=== PATIENT | male | born 1965 | race Caucasian/White ===

== ENCOUNTER 2024-10-05 11:06 | Emergency (ER) | payer MEDICAID, OTHER ==
[~2024-10-05] VITALS: Ht 167.6 cm; Wt 87.7 kg
--- NOTE | 2024-10-05 11:22 | ED.PDOC ---
Musculoskeletal HPI Comments PMHx: Denies. PSHx: Lt knee, hip, and femur surgery Social hx: Uses marijuana. Denies alcohol and tobacco use. Meds: None. Allergies: NKDA. Vitals T: 98.2F RR: 18 HR: 72 BP: 182/98 O2: 97% on RA HPI: Poor Historian. 58-year-old male presents to emergency department for evaluation of bilateral leg swelling with erythema and discomfort in bilateral legs. Patient points to below the knee all the way down to the foot. Patient states this started approximately a week and a half ago. Denies any associated chest pain or shortness of breath or fever. REVIEW OF SYSTEMS: CONSTITUTIONAL: Denies acute: fever, diaphoresis, chills, generalized weakness. HEAD: Denies acute: headache, photophobia Eyes: Denies acute: Double vision, vision loss, eye pain, eye discharge. EARS: Denies acute: tinnitus, hearing loss, ear discharge, ear pain, THROAT: Denies acute: sore throat, swelling, difficulty swallowing , pain with swallowing, change in voice. NECK: Denies acute: neck pain, neck swelling, stiff neck. HEART: Denies acute : chest pain, palpitations, LUNGS: Denies acute: SOB, wheezing, cough, hemoptysis ABDOMEN: Denies acute: abdominal pain, Nausea, Vomiting, diarrhea, melena , hematemesis, hematochezia SKIN: Denies acute: rash, lesions, itchiness. EXTREMITIES: Denies acute: calf pain, numbness, tingling, weakness, Denies acute: Low back pain. Neuro: Denies acute: focal neurological deficit, motor or sensory focal neurological deficit, tremors, seizure like activity, confusion, dizziness, change in mental status, loss of bowel or bladder function, cauda equina like symptoms. : Denies acute: dysuria, hematuria, flank pain, increase in urinary frequency. PSYCH: Denies acute: hallucination, suicidal ideation, homicidal ideation. PHYSICAL EXAM: General: no acute distress, awake and alert. Head: normocephalic, atraumatic. Neck: supple, trachea is midline, no swelling. Throat: Normal phonation. Eyes:, no erythema, no purulent discharge, no proptosis, no icterus. Heart: regular rate, regular rhythm, no significant murmur appreciated. Lungs: no apparent respiratory distress, Able to speak in full sentences. No wheezing, no rhonchi, no crackles. No stridors Clear to auscultation bilaterally. Abdomen: non tender to palpation, non distended, soft, no guarding, no rebound, + bowel sounds. Neuro: Awake, Alert, oriented to name, self, situation, follows commands GCS=15. Speech is normal. Skin: no petechia, no purpura, no cyanosis, non-pale, not jaundice. Lower extremities: --3/4 bilateral - Pitting edema no deformity, no focal swelling, no calf TTP. Makes eye contact. moves all four extremities. Patient is neurovascularly intact in bilateral lower extremities. Pedal pulses are palpable bilaterally. Motor and sensory are present bilaterally. Face: no apparent facial droop. Ambulating in the ED independently. Chief Complaint: Lower Extremity Time Seen by MD: 11:10 Primary Care Provider: NONE Reviewed Notes: Nurses Notes, Medications, Allergies Allergies: Coded Allergies: NO KNOWN ALLERGIES (Unverified , 10/05/24) Information Source: Patient Mode of Arrival: Ambulatory Location: Bilateral Extremity Location: Leg Timing: Weeks Severity: Moderate Able to Move Extremity: Yes Bear Weight: Fully Pain: Mild Mechanism: None Circumstances: Other Onset of Symptoms: Spontaneous Symptoms: Swelling, Pain, Erythema, Warmth DVT Risk Factors: NONE Last Tetanus: UTD History of: Hip Fracture, Hip Operation Associated signs and symptoms: Leg pain Past Medical History PAST MEDICAL HISTORY: Denies Surgical History (Other): Lt knee, hip, and femur surgery Family History Family History: Reviewed,noncontributory to illness Social History Alcohol: Occasionally Drugs: Marijuana Lives In: Home Was a procedure done? Was a procedure done?: No Differential Diagnosis EXT Differential Diagnosis: Cellulitis, Deep Vein Thrombosis, Other (Leg swellingDdx include but not limited to DVT, ischemic limb, pitting edema, volume overload, CHF, cellulitis, hematoma, compartment syndrome, dependent edema, venous stasis.) X-Ray, Labs, Meds, VS Vital Signs Date Time Temp Pulse Resp B/P (MAP) Pulse Ox O2 Delivery O2 Flow Rate FiO2 10/05/24 11:28 98.2 72 18 182/98 (126) 97 Lab Test 10/05/24 14:04 10/05/24 11:34 Range/Units B-Type Natriuretic Peptide 29.32 0-100 pg/mL White Blood Count 6.7 4.4-10.8 10^3/uL Red Blood Count 4.43 L 4.5-5.90 10^6/uL Hemoglobin 15.7 13.5-17.5 g/dL Hematocrit 44.7 41.0-53.0 % Mean Corpuscular Volume 100.9 H 80.0-100.0 fL Mean Corpuscular Hemoglobin 35.4 H 28.0-32.0 pg Mean Corpuscular Hemoglobin Concent 35.1 32.0-36.0 g/dL Red Cell Distribution Width 14.3 11.8-14.3 % Platelet Count 190 140-450 10^3/uL Mean Platelet Volume 8.7 6.9-10.8 fL Neutrophils (%) (Auto) 52.0 37.0-80.0 % Lymphocytes (%) (Auto) 29.2 10.0-50.0 % Monocytes (%) (Auto) 7.8 0.0-12.0 % Eosinophils (%) (Auto) 7.5 H 0.0-7.0 % Basophils (%) (Auto) 3.5 H 0.0-2.0 % Neutrophils # (Auto) 3.5 1.6-8.6 10 ^3/uL Lymphocytes # (Auto) 2.0 0.4-5.4 10 ^3/uL Monocytes # (Auto) 0.5 0-1.3 10 ^3/uL Eosinophils # (Auto) 0.5 0-0.8 10 ^3/uL Basophils # (Auto) 0.2 0-0.2 10 ^3/uL Nucleated Red Blood Cells 0.1 % Erythrocyte Sedimentation Rate 8 0-20 mm/hr Sodium Level 141 136-145 mmol/L Potassium Level 3.7 3.5-5.1 mmol/L Chloride Level 110 H 98-107 mmol/L Carbon Dioxide Level 27 20-31 mmol/L Anion Gap 4 L 5-15 Blood Urea Nitrogen 6 L 9-23 mg/dL Creatinine 0.80 0.700-1.30 mg/dL Glomerular Filtration Rate Calc 104 >90 mL/min BUN/Creatinine Ratio 7.5 L 10.0-20.0 Serum Glucose 104 74-106 mg/dL Lactic Acid Level 1.2 0.4-2.0 mmol/L Calcium Level 9.1 8.7-10.4 mg/dL Total Bilirubin 2.4 H 0.2-1.0 mg/dL Aspartate Amino Transferase (AST) 127 H 13-40 U/L Alanine Aminotransferase (ALT) 107 H 7-40 U/L Alkaline Phosphatase 152 H 46-116 U/L C-Reactive Protein High Sensitivity 0.29 <1.0 mg/dL Total Protein 6.5 5.7-8.2 g/dL Albumin 3.1 L 3.2-4.8 g/dL [place] [id number] Ph: [phone] DIAGNOSTIC IMAGING Diagnostic Imaging Report : [id number] Signed PATIENT: SWETHA TEJADA ACCT: [id number] UNIT: [id number] : 1965 LOC: ER ROOM / BED: / AGE / SEX: 58 / M ADM STATUS: REG ER SERVICE 25 ORDERING PHYSICIAN: CLEOPATRA WEINER DO PROCEDURE(s): BLDVT - BiLat Lower DVT REASON: swelling ORDER NUMBER(s): [id number], ACCESSION NUMBER(s): [id number] Bilateral lower extremity venous Doppler INDICATION: swelling TECHNIQUE: Duplex venous sonography was performed with real-time and flow sensitive images submitted for evaluation. FINDINGS: Normal phasic venous flow. Veins are fully compressible. No filling defects. IMPRESSION: 1. No evidence of deep vein thrombosis. Probable popliteal or Cooper's cyst on the left measuring 3.9 cm ATED BY: RAVEN CHAU MD DICTATED DATE/TIME: 10/05/241211 SIGNED BY: RAVEN CHAU MD SIGNED DATE/TIME: 10/05/241211 CC: Time of 1ST Reevaluation: 11:44 Reevaluation 1ST: Unchanged Time of 2ND Reevaluation: 15:13 (Patient denies any nausea or vomiting or abdominal pain.) Patient Education/Counseling: Diagnosis, Treatment Family Education/Counseling: No Family Present Comments Patient presented with the above HPI.---leg swelling---workup was initiated. patient was found with the above mentioned diagnosis. Patient was given: Lasix. Patient ED course and VS have been stabilized. Patient has been reassessed in the ED and remained in a stable condition. CRP and ESR were essentially normal. No leukocytosis. Normal BNP. Normal lactic acid Pertinent incidental findings were discussed with the patient and/or family. Patient/family voices understanding and is agreeable with plan. Patient has been observed in the ED adequate length of time to insure improvement/stability. patient was discharged home in a stable condition. All the reports of any imaging studies that were ordered by myself were reviewed by myself. Departure 1 Departure Time of Disposition: 13:55 Impression: Primary Impression: Pitting edema Additional Impressions: Leg swelling Elevated LFTs Disposition: HOME / SELF CARE / HOMELESS Condition: Stable Additional Instructions: Additional discharge instructions: You MUST follow-up with your primary care/family doctor in 1 to 2 days. If you are unable to see your primary care/family doctor, please return to our emergency room for re-assessment and re-evaluation in 1 to 2 days. Return to the emergency room here in our facility or to the nearest ER [facility] if your symptoms change or worsen. CONSULTATIONS: you MUST Follow-up for consultation as soon as possible with: -gastroenterology and cardiology in 1-2 days. Please call for appointment. You MUST call the consultants office yourself to make an appointment. You may need to arrange that through your insurance and/or your primary/family doctor. If you are unable to see the software security consultant in 1 to 2 days, you must return to our emergency room (or any other ER of your choice) for re-assessment and re- evaluation. Adequate fluid hydration. Wear compression stockings bilaterally. Below is a copy of your radiological report for follow up: [place] [address] Ph: [phone] DIAGNOSTIC IMAGING Diagnostic Imaging Report : [id number] Signed PATIENT: SWETHA TEJADA ACCT: [id number] UNIT: [id number] : 1965 LOC: ER ROOM / BED: / AGE / SEX: 58 / M ADM STATUS: REG ER SERVICE 1126 ORDERING PHYSICIAN: CLEOPATRA WEINER DO PROCEDURE(s): BLDVT - BiLat Lower DVT REASON: swelling ORDER NUMBER(s): [id number], ACCESSION NUMBER(s): [id number] Bilateral lower extremity venous Doppler INDICATION: swelling TECHNIQUE: Duplex venous sonography was performed with real-time and flow sensitive images submitted for evaluation. FINDINGS: Normal phasic venous flow. Veins are fully compressible. No filling defects. IMPRESSION: 1. No evidence of deep vein thrombosis. Probable popliteal or Cooper's cyst on the left measuring 3.9 cm ATED BY: RAVEN CHAU MD DICTATED DATE/TIME: 10/05/241211 SIGNED BY: RAVEN CHAU MD SIGNED DATE/TIME: 10/05/241211 CC: Discharged With: Self Critical Care Note Critical Care Time?: No Heart Score Heart Score: Heart Score Response (Comments) Value History N/A 0 EKG N/A 0 Age N/A 0 Risk Factors N/A 0 Troponin N/A 0 Total 0 I personally scribed for CLEOPATRA WEINER DO ([email or web address]) on 10/05/24 at 11:22. Electronically submitted by Staci Pepper ([email or web address]). I personally scribed for CLEOPATRA WEINER DO ([email or web address]) on 10/05/24 at 11:27. Electronically submitted by Staci Pepper ([email or web address]). I personally scribed for CLEOPATRA WEINER DO ([email or web address]) on 10/05/24 at 11:34. Electronically submitted by Staci Pepper ([email or web address]). I personally scribed for CLEOPATRA WEINER DO ([email or web address]) on 10/05/24 at 12:20. Electronically submitted by Staci Pepper ([email or web address]). CLEOPATRA WEINER DO Oct 05, 2024 11:22
[2024-10-05 11:28] VITALS: BP 182/98; PULSE 72; RESP 18; O2SAT 97
[2024-10-05 12:07] LABS: Basophils # (auto) 0.2 10 ^3/uL (0-0.2); Eosinophils # (auto) 0.5 10 ^3/uL (0-0.8); Monocytes # (auto) 0.5 10 ^3/uL (0-1.3); Neutrophils # (auto) 3.5 10 ^3/uL (1.6-8.6); Nucleated Red Blood Cells % 0.1 %; Red Cell Distribution Width 14.3 % (11.8-14.3)
[2024-10-05 12:08] LABS: Basophils % (auto) 3.5 % (0.0-2.0); Eosinophils % (auto) 7.5 % (0.0-7.0); Hematocrit 44.7 % (41.0-53.0); Hemoglobin 15.7 g/dL (13.5-17.5); Lymphocytes % (auto) 29.2 % (10.0-50.0); Mean Corpuscular Hemoglobin 35.4 pg (28.0-32.0); Mean Corpuscular Hgb Conc. 35.1 g/dL (32.0-36.0); Mean Corpuscular Volume 100.9 fL (80.0-100.0); Monocytes % (auto) 7.8 % (0.0-12.0); Platelet Count (auto) 190 10^3/uL (140-450); Red Blood Cells 4.43 10^6/uL (4.5-5.90); White Blood Cell 6.7 10^3/uL (4.4-10.8)
--- NOTE | 2024-10-05 12:15 | DVH ---
Bilateral lower extremity venous Doppler INDICATION: swelling TECHNIQUE: Duplex venous sonography was performed with real-time and flow sensitive images submitted for evaluation. FINDINGS: Normal phasic venous flow. Veins are fully compressible. No filling defects. IMPRESSION: 1. No evidence of deep vein thrombosis. Probable popliteal or Cooper's cyst on the left measuring 3.9 cm
[2024-10-05 12:20] LABS: Alanine Aminotransferase 107 U/L (7-40); Albumin 3.1 g/dL (3.2-4.8); Alkaline Phosphatase 152 U/L (46-116); Anion Gap 4 (5-15); Aspartate Aminotransferase 127 U/L (13-40); BUN/Creatinine Ratio 7.5 (10.0-20.0); Bilirubin, Total 2.4 mg/dL (0.2-1.0); Blood Urea Nitrogen 6 mg/dL (9-23); CRP High Sensitivity 0.29 mg/dL (<1.0); Calcium 9.1 mg/dL (8.7-10.4); Carbon Dioxide 27 mmol/L (20-31); Chloride 110 mmol/L (98-107); Glucose 104 mg/dL (74-106); Potassium 3.7 mmol/L (3.5-5.1); Sodium 141 mmol/L (136-145); Total Protein 6.5 g/dL (5.7-8.2)
[2024-10-05 12:47] LABS: Erythrocyte Sedimentation Rate 8 mm/hr (0-20)
[2024-10-05] MEDS ORDERED: FUROSEMIDE 40 MG/4 ML VIAL IV ONE (13:00)
== END 2024-10-05 15:46 | disposition home or self-care (01) ==
LOC: ER 11:06
DX: R60.0 Localized edema (principal); R79.89 Other specified abnormal findings of blood chemistry; F12.90 Cannabis use, unspecified, uncomplicated; Z98.890 Other specified postprocedural states
CPT/HCPCS: 36415; 80053; 83605; 83880; 85025; 85652; 86141; 93970

== ENCOUNTER 2024-12-17 13:57 | Emergency (ER) | payer MEDICAID ==
[~2024-12-17] VITALS: Ht 167.6 cm; Wt 87.5 kg
--- NOTE | 2024-12-17 14:15 | ED.PDOC ---
HPI Comments 59y M who presents to the ED for chief complaint of chest pain. Pt states he has been having chest pain since last night PM. Pt states the pain is located in the center of his chest, constant, rating the pain 7/10, radiating to the back, with noted exacerbation of pain with exertion and no relieving factors. Pt has associated shortness of breath, cough, fever and chills with lower abdominal pain. Pt otherwise any other associated symptoms. Pt denies any past medical history. Chief Complaint: chest pain Time Seen by MD: 14:10 Reviewed Notes: Nurses Notes, Medications, Allergies (No allergies to medications) Allergies: Coded Allergies: NO KNOWN ALLERGIES (Unverified , 10/05/24) Information Source: Patient Mode of Arrival: Ambulatory Brought in by: self Severity: Moderate Timing: Hours Duration: Since onset Prehospital treatment: None Location: Chest (R), Chest (L) Radiation: Back Quality: Pressure Onset: At Rest, With Light Exertion Cardiac Risk Factors: Smoker PE Risk Factors: None History of: None Modifying Factors: Exertion, Movement Associated Signs and Symptoms: Palpitations, Abdominal Pain, Other (fever, cough and chills) Past Medical History PAST MEDICAL HISTORY: Denies Surgical History (Other): hip surgery, L knee replacement, Family History Family History: Family hx of DM Social History Smoker: Cigarettes Alcohol: Occasionally Drugs: Denies Drug Use Lives In: Home Constitutional: reports: chills, fatigue, fever; denies: diaphoresis, malaise, sweats, weakness, others EENTM: denies: blurred vision, double vision, ear bleeding, ear discharge, ear drainage, ear pain, ear ringing, eye pain, eye redness, hearing loss, mouth pain, mouth swelling, nasal discharge, nose bleeding, nose congestion, nose pain, photophobia, tearing, throat pain, throat swelling, voice changes, others Respiratory: reports: cough, shortness of breath, SOB with excertion; denies: hemoptysis, orthopnea, SOB at rest, stridor, wheezing, others Cardiovascular: reports: chest pain; denies: dizzy spells, diaphoresis, Dyspnea on exertion, edema, irregular heart beat, left arm pain, lightheadedness, palpitations, PND, syncope, others Gastrointestinal: denies: abdomen distended, abdominal pain, blood streaked bowels, constipated, diarrhea, dysphagia, difficulty swallowing, hematemesis, melena, nausea, poor appetite, poor fluid intake, rectal bleeding, rectal pain, vomiting, others Genitourinary: denies: burning, dysuria, flank pain, frequency, hematuria, incontinence, penile discharge, penile sore, pain, testicle pain, testicle swelling, urgency, others Neurological: denies: dizziness, fainting, headache, left sided numbness, left sided weakness, numbness, paresthesia, pre-existing deficit, right sided numbness, right sided weakness, seizure, speech problems, tingling, tremors, weakness, others Musculoskeletal: denies: back pain, gout, joint pain, joint swelling, muscle pain, muscle stiffness, neck pain, others Integumetry: denies: bruises, change in color, change in hair/nails, dryness, laceration, lesions, lumps, rash, wounds, others Allergic/Immunocompromised: denies: Difficulty Healing, Frequent Infections, Hives, Itching, others Hematologic/Lymphatic: denies: anemia, blood clots, easy bleeding, easy bruising, swollen glands, others Endocrine: denies: excessive hunger, excessive sweating, excessive thirst, excessive urination, flushing, intolerance to cold, intolerance to heat, unexplained weight gain, unexplained weight loss, others Psychiatric: denies: anxiety, bipolar disorder, depression, hopeless, panic disorder, schizophrenia, sleepless, suicidal, others All Other Systems: Reviewed and Negative Physical Exam General Appearance: Moderate Distress HEENT: Normal ENT Inspection, Pharynx Normal, TMs Normal Neck: Full Range of Motion, Non-Tender, Normal, Normal Inspection Respiratory: Chest Non-Tender, Lungs Clear, No Accessory Muscle Use, No Respi ratory Distress, Normal Breath Sounds Cardiovascular: No Edema, No JVD, No Murmur, No Gallop, Normal Peripheral Pulses, Regular Rate/Rhythm Breast Exam: Deferred Gastrointestinal: Epigastric, No Organomegaly, No Pulsatile Mass, Normal Bowel Sounds, Soft, Tenderness Genitalia: Deferred Pelvic: Deferred Rectal: Deferred Extremities: No calf tenderness, Normal capillary refill, No pedal edema Musculoskeletal : Apperance: Normal Neurologic: Alert, accounts payable representative II-XII nml as Tested, Motor Weakness, Normal Affect, Normal Mood, No Sensory Deficits Cerebellar Function: Normal Reflexes: Normal Skin: Dry, Pallor, Warm Lymphatic: No Adenopathy EKG EKG : Pulse Rate (adult): 70 [place]: Normal Cardiac Rhythm: Afib Hypertrophy: None ST: Normal Was a procedure done? Was a procedure done?: No CP Differential Dx Differential Diagnosis: A-fib, A-Flutter, Angina, Anxiety / Panic Attack, Electrolyte Disorder, Heart Failure, MS, Pulmonary Embolus, PVC's X-Ray, Labs, Meds, VS Vital Signs Date Time Temp Pulse Resp B/P (MAP) Pulse Ox O2 Delivery O2 Flow Rate FiO2 12/17/24 16:32 71 12/17/24 16:11 99.0 74 16 174/96 (122) 97 12/17/24 14:24 70 12/17/24 14:15 70 Lab Test 12/17/24 15:39 12/17/24 15:07 Range/Units Troponin I High Sensitivity 5 5 </=54 ng/L White Blood Count 5.6 4.4-10.8 10^3/uL Red Blood Count 4.34 L 4.5-5.90 10^6/uL Hemoglobin 15.3 13.5-17.5 g/dL Hematocrit 43.4 41.0-53.0 % Mean Corpuscular Volume 99.8 80.0-100.0 fL Mean Corpuscular Hemoglobin 35.1 H 28.0-32.0 pg Mean Corpuscular Hemoglobin Concent 35.2 32.0-36.0 g/dL Red Cell Distribution Width 14.1 11.8-14.3 % Platelet Count 154 140-450 10^3/uL Mean Platelet Volume 9.0 6.9-10.8 fL Neutrophils (%) (Auto) 62.9 37.0-80.0 % Lymphocytes (%) (Auto) 19.2 10.0-50.0 % Monocytes (%) (Auto) 12.4 H 0.0-12.0 % Eosinophils (%) (Auto) 4.4 0.0-7.0 % Basophils (%) (Auto) 1.1 0.0-2.0 % Neutrophils # (Auto) 3.6 1.6-8.6 10 ^3/uL Lymphocytes # (Auto) 1.1 0.4-5.4 10 ^3/uL Monocytes # (Auto) 0.7 0-1.3 10 ^3/uL Eosinophils # (Auto) 0.2 0-0.8 10 ^3/uL Basophils # (Auto) 0.1 0-0.2 10 ^3/uL Nucleated Red Blood Cells 0.1 % Sodium Level 138 136-145 mmol/L Potassium Level 3.9 3.5-5.1 mmol/L Chloride Level 106 98-107 mmol/L Carbon Dioxide Level 25 20-31 mmol/L Anion Gap 7 5-15 Blood Urea Nitrogen 6 L 9-23 mg/dL Creatinine 0.72 0.700-1.30 mg/dL Glomerular Filtration Rate Calc 107 >90 mL/min BUN/Creatinine Ratio 8.3 L 10.0-20.0 Serum Glucose 87 74-106 mg/dL Calcium Level 8.8 8.7-10.4 mg/dL Total Bilirubin 1.4 H 0.2-1.0 mg/dL Aspartate Amino Transferase (AST) 106 H 13-40 U/L Alanine Aminotransferase (ALT) 87 H 7-40 U/L Alkaline Phosphatase 200 H 46-116 U/L Total Protein 6.2 5.7-8.2 g/dL Albumin 3.1 L 3.2-4.8 g/dL Lipase 25 12-53 U/L Current Medications Medications (Trade) Dose Ordered Sig/Brady Route Start Time Stop Time Status Last Admin Ondansetron HCl (Zofran) 4 mg ONCE ONCE IV 12/17/24 14:30 12/17/24 14:31 DC 12/17/24 16:36 Pantoprazole Sodium (Protonix) 40 mg ONCE ONCE IV 12/17/24 14:30 12/17/24 14:31 DC 12/17/24 16:36 EXAM: US Abdomen Limited, Gallbladder IMPRESSION: Prominent vasculature is noted in the left hepatic lobe could be varices versus recanalized umbilical vein. The CBC is within normal limits The chemistry panel is within normal limits The lipase is within normal limits The patient was given Protonix 40 mg IV push The patient was also given Zofran 4 mg IV push for the nausea and vomiting At this time, the patient was being admitted to the hospitalist. Images Reviewed?: Images reviewed and evaluated by me Time of 1ST Reevaluation: 14:40 Reevaluation 1ST: Unchanged Patient Education/Counseling: Diagnosis, Treatment, Prognosis Family Education/Counseling: No Family Present Departure 1 Departure Time of Disposition: 17:13 Impression: Primary Impression: Elevated LFTs Additional Impressions: Intractable abdominal pain Acute chest pain Disposition: 09 ADMITTED INPATIENT Admit to: Tele Condition: Fair Critical Care Note Critical Care Time?: No Stability Stability form required: Yes Unstable for transfer: Telemetry monitoring (Telemetry monitoring required), ED Physician Assesment (Clinical assesment) Heart Score Heart Score: Heart Score Response (Comments) Value History Moderate Suspicious 1 EKG Normal 0 Age 45-64 1 Risk Factors No known risk factors 0 Troponin Normal limit 0 Total 2 I personally scribed for CRIS MILLER MD ([email or web address]) on 12/17/24 at 14:15. Electronically submitted by Yovany Akers ([employer]). I personally scribed for CRIS MILLER MD ([email or web address]) on 12/17/24 at 15:21. Electronically submitted by Yovany Akers ([employer]). CRIS MILLER MD Dec 17, 2024 14:15
--- NOTE | 2024-12-17 15:09 | DVH ---
EXAM: US Abdomen Limited, Gallbladder CLINICAL INDICATION: pain TECHNIQUE: Real-time ultrasound of the right upper quadrant with image documentation. COMPARISON: None FINDINGS: LIVER: Hepatopetal blood flow was identified in the main portal vein. The liver measures 12.3 cm. The liver appears nodular and coarse in echotexture. Prominent vasculature is noted in the left hep atic lobe could be varices versus recanalized umbilical vein. GALLBLADDER: Unremarkable. No gallstones. COMMON BILE DUCT: CBD not visualized. PANCREAS: Unremarkable as visualized. RIGHT KIDNEY: Right kidney measures up to 10.4 cm. OTHER FINDINGS: . . . . .. IMPRESSION: Prominent vasculature is noted in the left hepatic lobe could be varices versus recanalized umbilica l vein.
[2024-12-17 15:37] LABS: Basophils # (auto) 0.1 10 ^3/uL (0-0.2); Eosinophils # (auto) 0.2 10 ^3/uL (0-0.8); Eosinophils % (auto) 4.4 % (0.0-7.0); Mean Corpuscular Volume 99.8 fL (80.0-100.0); Monocytes # (auto) 0.7 10 ^3/uL (0-1.3); Neutrophils # (auto) 3.6 10 ^3/uL (1.6-8.6); White Blood Cell 5.6 10^3/uL (4.4-10.8)
[2024-12-17 15:39] LABS: Basophils % (auto) 1.1 % (0.0-2.0); Hematocrit 43.4 % (41.0-53.0); Hemoglobin 15.3 g/dL (13.5-17.5); Lymphocytes # (auto) 1.1 10 ^3/uL (0.4-5.4); Lymphocytes % (auto) 19.2 % (10.0-50.0); Mean Corpuscular Hemoglobin 35.1 pg (28.0-32.0); Mean Corpuscular Hgb Conc. 35.2 g/dL (32.0-36.0); Monocytes % (auto) 12.4 % (0.0-12.0); Neutrophils % (auto) 62.9 % (37.0-80.0); Nucleated Red Blood Cells % 0.1 %; Platelet Count (auto) 154 10^3/uL (140-450); Red Blood Cells 4.34 10^6/uL (4.5-5.90); Red Cell Distribution Width 14.1 % (11.8-14.3)
[2024-12-17 15:52] LABS: Anion Gap 7 (5-15); BUN/Creatinine Ratio 8.3 (10.0-20.0); Calcium 8.8 mg/dL (8.7-10.4); Carbon Dioxide 25 mmol/L (20-31); Chloride 106 mmol/L (98-107); Glucose 87 mg/dL (74-106); Lipase 25 U/L (12-53); Potassium 3.9 mmol/L (3.5-5.1); Sodium 138 mmol/L (136-145); Total Protein 6.2 g/dL (5.7-8.2)
[2024-12-17 16:03] LABS: Alanine Aminotransferase 87 U/L (7-40); Albumin 3.1 g/dL (3.2-4.8); Alkaline Phosphatase 200 U/L (46-116); Aspartate Aminotransferase 106 U/L (13-40); Bilirubin, Total 1.4 mg/dL (0.2-1.0); Blood Urea Nitrogen 6 mg/dL (9-23)
[2024-12-17 16:11] VITALS: BP 174/96; RESP 16; O2SAT 97
[2024-12-17 16:32] VITALS: PULSE 71
[2024-12-17] MEDS: ONDANSETRON HCL 4 MG/2 ML VIAL IV ONE (16:36)
[2024-12-17] MEDS: PANTOPRAZOLE 40 MG/10 ML VIAL INJ IV ONE (16:36)
--- NOTE | 2024-12-18 00:33 | ECG ---
[facility] Test Date: 2024-12-17 Test Time: 14:07:51 Pat Name: SWETHA TEJADA Department: ER Room: Gender: Face Cleaner: : 1965 Requested By: CRIS MILLER Order Number: [id number] Reading MD: Tex Barone Measurements Intervals [place] Rate: 70 P: 0 NM: 0 QRS: 42 QRSD: 94 T: 64 QT: 375 QTc: 405 Interpretive Statements Atrial fibrillation Electronically Signed On 12-18-2024 12:10:47 PST by Tex Barone Please click the below link to view image of tracing.
--- NOTE | 2024-12-18 00:33 | ECG ---
[facility] Test Date: 2024-12-17 Test Time: 16:28:59 Pat Name: SWETHA TEJADA Department: ED Room: Gender: M [employer]: [employer] : 1965 Requested By: CRIS MILLER Order Number: [id number] Reading MD: Tex Barone Measurements Intervals [place] Rate: 71 P: 32 VT: 129 QRS: 34 QRSD: 93 T: 49 QT: 371 QTc: 404 Interpretive Statements Sinus rhythm Probable left atrial enlargement Electronically Signed On 12-18-2024 12:11:11 PST by Tex Barone Please click the below link to view image of tracing.
== END 2024-12-17 23:30 | disposition left against medical advice (07) ==
LOC: ER 13:57
DX: R07.9 Chest pain, unspecified (principal); R79.89 Other specified abnormal findings of blood chemistry; R10.30 Lower abdominal pain, unspecified; R00.2 Palpitations; R06.02 Shortness of breath; R11.2 Nausea with vomiting, unspecified; F17.210 Nicotine dependence, cigarettes, uncomplicated; Z96.652 Presence of left artificial knee joint
CPT/HCPCS: 36415; 76705; 80053; 83690; 84484; 85025; 93005; 96374; 96375; 99285; J2405; J2470